=== PATIENT | female | born 1965 | race Caucasian/White ===

== ENCOUNTER 2016-08-18 21:19 | Emergency (ER) | payer OTHER | END 2016-08-18 21:40 | disposition home or self-care (01) | LOC: FER 21:19 | DX: S86.111A Strain of other muscle(s) and tendon(s) of posterior muscle group at lower leg level, right leg, initial encounter (principal); W17.2XXA Fall into hole, initial encounter; Y92.009 Unspecified place in unspecified non-institutional (private) residence as the place of occurrence of the external cause ==

== ENCOUNTER 2021-07-02 18:33 | Inpatient (IN) | payer OTHER ==
[~2021-07-02] VITALS: Ht 162.6 cm; Wt 155.2 kg
[2021-07-02 20:26] LABS: BASOPHIL 0.4 % (0-2); EOSINOPHIL 0 % (0-5); HCT 46.3 % (37.0-47.0); HGB 14.4 g/dl (12.5-16.0); LYMPHOCYTE 8.9 % (15-48); MCHC 31.1 g/dL (32.0-36.0); MCV 86.9 fL (78.0-100.0); MONOCYTE 4.6 % (0-12); MPV 10.1 fL (6.0-9.5); NEUTROPHIL 85.8 % (41-80); NRBC 0; PLT 261 K/uL (150-400); RBC 5.33 M/uL (4.20-5.40); RDW 14.6 % (11.5-14.0); WBC 10.9 K/uL (4.0-10.5)
[2021-07-02 20:42] LABS: ALBUMIN 3.8 g/dL (3.4-5.0); BILIRUBIN - TOTAL 0.4 mg/dL (0.2-1.0); BUN/CREAT RATIO (CALC) 17.1 RATIO; CREATININE 0.76 mg/dL (0.51-0.95); GLOBULIN (CALCULATION) 4.5 g/dL; POTASSIUM 3.8 mmol/L (3.5-5.1); TOTAL PROTEIN 8.3 g/dL (6.4-8.2)
[2021-07-02 20:59] LABS: INFLUENZA A NAA NEGATIVE (NEGATIVE)
[2021-07-02 21:05] LABS: CORONAVIRUS 2019 SARS-COV-2 POSITIVE (NEGATIVE)
[2021-07-03 01:59] LABS: C-REACTIVE PROTEIN < 0.20 mg/dL (<=0.90)
[2021-07-03 07:05] LABS: BUN/CREAT RATIO (CALC) 21.1 RATIO; CREATININE 0.71 mg/dL (0.51-0.95); POTASSIUM 4.1 mmol/L (3.5-5.1)
[2021-07-03] MEDS ORDERED: HCTZ25 MG PO (11:09)
[2021-07-03] MEDS ORDERED: COZAAR50 MG PO (11:10)
[2021-07-03 22:15] LABS: BILIRUBIN NEGATIVE (NEGATIVE); BLOOD NEGATIVE Ery/uL (NEGATIVE); CLARITY CLEAR (CLEAR); COLOR YELLOW (YELLOW); GLUCOSE (U) NORMAL (NORMAL); LEUKOCYTES NEGATIVE Leu/uL (NEGATIVE); NITRITE NEGATIVE (NEGATIVE); PROTEIN 1+ mg/dL (NEGATIVE); SPECIFIC GRAVITY 1.025 (1.001-1.030); UROBILINOGEN 0.2 mg/dL (0.2-1.0)
[2021-07-03 22:24] LABS: URINARY RBC RARE
[2021-07-04 06:56] LABS: BASOPHIL 0.2 % (0-2); EOSINOPHIL 0 % (0-5); HCT 43.1 % (37.0-47.0); HGB 13.4 g/dl (12.5-16.0); LYMPHOCYTE 7.6 % (15-48); MCH 26.6 pg (25.0-31.0); MCHC 31.1 g/dL (32.0-36.0); MCV 85.5 fL (78.0-100.0); MONOCYTE 8.5 % (0-12); NEUTROPHIL 83.1 % (41-80); NRBC 0; PLT 224 K/uL (150-400); RBC 5.04 M/uL (4.20-5.40); RDW 14.7 % (11.5-14.0)
[2021-07-04 07:17] LABS: BUN/CREAT RATIO (CALC) 18.9 RATIO; CREATININE 0.74 mg/dL (0.51-0.95); POTASSIUM 3.4 mmol/L (3.5-5.1)
--- NOTE | 2021-07-04 19:01 | NUR ---
NOTIFIED OF WARM RED RLE ORDERED LOVENOX
[2021-07-04 20:53] LABS: C-REACTIVE PROTEIN >18.00 mg/dL (<=0.90); LDH 311 U/L (81-234); MAGNESIUM 1.9 mg/dL (1.8-2.4); PHOSPHORUS 1.9 mg/dL (2.6-4.7)
--- NOTE | 2021-07-05 02:47 | NUR ---
The patient began to decompensate, with seizure like activity and increased respiratory rate. NURSE WOUND CARE called to bedside at 2119. NURSE WOUND CARE ordered rapid sequence intubation. RSI proceeded as follows: 2131 - Time out called for emergency intubation. 2136 - RSI drugs administered IV push: 5mg Versed, and 40mg Etomidate 2137 - Patient bagged 2138 - 0 - 200mg Succinylcholine admnistered 2139 - Intubation begun. ETT failed to enter trachea 2140 - Patient bagged 2146 - second attempt at intubation 2147 - ETT failed to enter trachea 2150 - 5mg Versed administered 2150 - Intubation begun. ETT failed to enter trachea 2152 - Patient bagged 2154 - 20mg Etomidated administered 215 - Intubation begun. ETT failed to enter trachea 2156 - 100mg Succinylcholine administered 215 - Intubation begun. ETT failed to enter trachea 2200 - Patient bagged 2204 - Intubation begun. ETT entered trachea.
--- NOTE | 2021-07-05 05:10 | NUR ---
AT SHIFT CHANGE [employer]ER REPORTED TO RN THAT PATIENT WAS HAVING DIFFICULTY BREATHING. UPON MANAGER [employer]PORATE STRATEGY SAW PATIENT TACHYCARDIC, TACHYPENIC, FEBRILE DIAPHORITIC, LABORED BREATHING, AND INCREASED CONFUSION. RAPID RESPONSE CALLED. TEACHING MANAGER, RT, RN, AND MERLY TSE AT BEDSIDE. STAT ABG ORDERED AND STAT BIPAP PLACEMENT FOR PATIENT. ABG RESULTS REPORTED TO Tyesha MORELAND. BIPAP SETTINGS INSP. PRESSURE - 16 / EXP PRESSURE 8 / FIO2 100 / RATE 20. STAT MED ORDERS FOR LASIX, TORADOL, AND MORPHINE IV PUSH ONE TIME PLACED AND GIVEN BY ROYS KOWALSKI. STAT ORDERS FOR LABS PLACED BY MERLY TSE. DEVIL TENDER GIVEN REPORT ON PATIENT.
[2021-07-05 06:01] LABS: BASOPHIL 0.6 % (0-2); EOSINOPHIL 0.5 % (0-5); HCT 43.6 % (37.0-47.0); HGB 13.5 g/dl (12.5-16.0); LYMPHOCYTE 10.9 % (15-48); MCH 26.8 pg (25.0-31.0); MCV 86.5 fL (78.0-100.0); MONOCYTE 4.3 % (0-12); MPV 9.8 fL (6.0-9.5); NEUTROPHIL 83.4 % (41-80); NRBC 0; PLT 226 K/uL (150-400); RBC 5.04 M/uL (4.20-5.40)
[2021-07-05 06:21] LABS: CREATININE 1.19 mg/dL (0.51-0.95); POTASSIUM 4.1 mmol/L (3.5-5.1)
[2021-07-05 06:40] LABS: WBC 6.5 K/uL (4.0-10.5)
[2021-07-05 17:32] LABS: BILIRUBIN NEGATIVE (NEGATIVE); BLOOD 1+ Ery/uL (NEGATIVE); CLARITY CLEAR (CLEAR); COLOR YELLOW (YELLOW); GLUCOSE (U) NORMAL (NORMAL); LEUKOCYTES NEGATIVE Leu/uL (NEGATIVE); NITRITE NEGATIVE (NEGATIVE); PROTEIN 2+ mg/dL (NEGATIVE); SPECIFIC GRAVITY 1.025 (1.001-1.030); UROBILINOGEN 0.2 mg/dL (0.2-1.0)
[2021-07-05 17:49] LABS: AMORPHOUS URATES CRYSTALS MODERATE; URINARY WBC RARE
[2021-07-05 17:50] LABS: BACTERIA 1+; GRANULAR CASTS TRACE; SQUAMOUS EPITHELIAL CELLS RARE
[2021-07-06 04:20] LABS: BASOPHIL 0 % (0-2); EOSINOPHIL 0 % (0-5); HCT 38.7 % (37.0-47.0); HGB 11.9 g/dl (12.5-16.0); LYMPHOCYTE 13.3 % (15-48); MCH 27.2 pg (25.0-31.0); MCHC 30.7 g/dL (32.0-36.0); MCV 88.4 fL (78.0-100.0); MPV 10.2 fL (6.0-9.5); NEUTROPHIL 81.2 % (41-80); NRBC 0; PLT 216 K/uL (150-400); RBC 4.38 M/uL (4.20-5.40); RDW 14.7 % (11.5-14.0)
[2021-07-06 04:33] LABS: WBC 6.5 K/uL (4.0-10.5)
[2021-07-06 04:47] LABS: BUN/CREAT RATIO (CALC) 37.8 RATIO; CREATININE 0.9 mg/dL (0.51-0.95); MAGNESIUM 2.4 mg/dL (1.8-2.4); POTASSIUM 3.8 mmol/L (3.5-5.1)
--- NOTE | 2021-07-06 17:55 | NUR ---
PT WAS PRONED AT 1630 TOLERATED INTERVENTION WELL, VITALS STABLE, VEC AT BEDSIDE FOR POSSIBLE NEED. WAS NOT STARTED ON PATIENT. MD ENGLISH AWARE AT BEDSIDE. UPDATED ON PATIENT STATUS
[2021-07-07 11:21] LABS: BASOPHIL 0.1 % (0-2); EOSINOPHIL 0 % (0-5); HCT 40.4 % (37.0-47.0); HGB 11.9 g/dl (12.5-16.0); LYMPHOCYTE 9.9 % (15-48); MCH 26.4 pg (25.0-31.0); MCHC 29.5 g/dL (32.0-36.0); MCV 89.8 fL (78.0-100.0); MONOCYTE 6.6 % (0-12); NEUTROPHIL 82.3 % (41-80); NRBC 0; PLT 235 K/uL (150-400); RDW 14.6 % (11.5-14.0); WBC 8.5 K/uL (4.0-10.5)
[2021-07-07 11:37] LABS: BUN/CREAT RATIO (CALC) 37.3 RATIO; CREATININE 0.67 mg/dL (0.51-0.95); POTASSIUM 4.1 mmol/L (3.5-5.1)
[2021-07-08 10:19] LABS: BASOPHIL 0.2 % (0-2); EOSINOPHIL 0 % (0-5); HCT 37.8 % (37.0-47.0); HGB 11.6 g/dl (12.5-16.0); LYMPHOCYTE 7.4 % (15-48); MCH 27.1 pg (25.0-31.0); MCHC 30.7 g/dL (32.0-36.0); MCV 88.3 fL (78.0-100.0); MONOCYTE 8.3 % (0-12); MPV 10.1 fL (6.0-9.5); NEUTROPHIL 82.1 % (41-80); NRBC 0; PLT 229 K/uL (150-400); RBC 4.28 M/uL (4.20-5.40); RDW 14.7 % (11.5-14.0); WBC 10.7 K/uL (4.0-10.5)
[2021-07-08 10:48] LABS: ALBUMIN 2.2 g/dL (3.4-5.0); BILIRUBIN - TOTAL 0.3 mg/dL (0.2-1.0); BUN/CREAT RATIO (CALC) 40.6 RATIO; CREATININE 0.64 mg/dL (0.51-0.95); POTASSIUM 4.4 mmol/L (3.5-5.1); TOTAL PROTEIN 6.2 g/dL (6.4-8.2)
--- NOTE | 2021-07-08 12:12 | NUR ---
nutrtion assessment completed this date; no order placed; MST 0 upon admission; intubated with TF's: RD picked up from daily screening and notice of Tube Feeding in diet orders. will monitor POC
[2021-07-08 14:50] LABS: INR 1.12 (0.9-1.2); PROTHROMBIN TIME 13.8 SECONDS (11.8-13.4); PTT 21.4 SECONDS (24.4-34.7)
[2021-07-08 17:24] LABS: CLARITY (FLUID) CLEAR; COLOR (FLUID) COLORLESS
[2021-07-08 17:26] LABS: RBC (FLUID) 4 RBC/uL; WBC (FLUID) 27 WBC/uL
--- NOTE | 2021-07-08 18:20 | NUR ---
07/08 Mr. Beltrán is intubated. Emotional support is being provided with spouse.
[2021-07-09 04:33] LABS: BASOPHIL 0.2 % (0-2); EOSINOPHIL 0 % (0-5); HCT 34.6 % (37.0-47.0); HGB 10.4 g/dl (12.5-16.0); LYMPHOCYTE 7.3 % (15-48); MCH 27.1 pg (25.0-31.0); MCHC 30.1 g/dL (32.0-36.0); MCV 90.1 fL (78.0-100.0); MONOCYTE 7.4 % (0-12); MPV 10.1 fL (6.0-9.5); NEUTROPHIL 81.2 % (41-80); NRBC 0; PLT 232 K/uL (150-400); RBC 3.84 M/uL (4.20-5.40); RDW 15.2 % (11.5-14.0); WBC 10.2 K/uL (4.0-10.5)
[2021-07-09 04:53] LABS: ALBUMIN 2.4 g/dL (3.4-5.0); BILIRUBIN - TOTAL 0.2 mg/dL (0.2-1.0); BUN/CREAT RATIO (CALC) 38.3 RATIO; C-REACTIVE PROTEIN 2.3 mg/dL (<=0.90); CREATININE 0.81 mg/dL (0.51-0.95); GLOBULIN (CALCULATION) 3.5 g/dL; MAGNESIUM 2.6 mg/dL (1.8-2.4); POTASSIUM 4.4 mmol/L (3.5-5.1); TOTAL PROTEIN 5.9 g/dL (6.4-8.2)
--- NOTE | 2021-07-09 08:56 | NUR ---
LATE ENTRY 07/08 1800 PATIENT WITH SEIZURE LIKE ACTIVITY OFF AND ON ENTIRE DAY. VALIUM GIVEN X 2 AND DIPRIVAN STARTED. SPOKE AT LENGTH WITH DR. ENGLISH ABOUT PATIENT. LUMBAR PUNCTURE DONE BY DR. GALLOWAY TO RULE OUT MENINGITIS.
--- NOTE | 2021-07-09 13:23 | NUR ---
07/09/21 Patient is on the waiting list at [facility].
[2021-07-10 06:21] LABS: BUN/CREAT RATIO (CALC) 38.3 RATIO; C-REACTIVE PROTEIN 1.9 mg/dL (<=0.90); CREATININE 1.2 mg/dL (0.51-0.95); POTASSIUM 4.3 mmol/L (3.5-5.1)
[2021-07-10 06:57] LABS: ALBUMIN 2.7 g/dL (3.4-5.0); BILIRUBIN - DIRECT 0.2 mg/dL (0.00-0.20); BILIRUBIN - TOTAL 0.4 mg/dL (0.2-1.0); GLOBULIN (CALCULATION) 3.2 g/dL; TOTAL PROTEIN 5.9 g/dL (6.4-8.2)
[2021-07-10 07:25] LABS: INR 1.24 (0.9-1.2); PROTHROMBIN TIME 14.9 SECONDS (11.8-13.4)
--- NOTE | 2021-07-10 12:23 | NUR ---
nutrition reassessment started this date: Diprovan increased to 19.3ml/hr; additional kcals from sedation now 509 calories, plans to reduce TF rate to adjust for support. in discussion with ROSY White, patient transferring to higher level of care.
--- NOTE | 2021-07-10 12:29 | NUR ---
PATIENT GOT BED AT [facility] MAIL. REPORT GIVEN TO ELMA. UNABLE TO FLY TO [facility] DUE TO WEATHER, DECISION MADE TO SEND BY GROUND. VECURONIUM STARTED TO CONTROL MYOCLONC ACTIVITY. [facility] TRANSPORTED PATIENT, LEFT AT 1155. SENT WITH VESEDGOING AT 6 MLS\HR WITH 50 MLS IN BOTTLE, 250 MLS OF VECURONIUM SENT GOING AT 1.2 MGS\KG\HR, FENTANYL GOING AT 10 MLS PER HOUR WITH 200 MLS LEFT IN BAG.
--- NOTE | 2021-07-10 12:45 | NUR ---
07/10/21 Patient was transferred to [facility].
== END 2021-07-10 12:37 | disposition other institution (70) | DRG 207 ==
LOC: FER 18:33 → FOFB 23:01 → FMS 23:01 → FICU 23:01 → FTCU 23:01 → FMS 07-03 09:27 → FTCU 07-04 10:07 → FICU 07-04 22:20
PROVIDERS: Allergy & Immunology Allergy; Nurse Practitioner; Nurse Practitioner Acute Care; Physician Assistant; ADMIT Internal Medicine
PROC: XW033E5 Introduction of Remdesivir Anti-infective into Peripheral Vein, Percutaneous Approach, New Technology Group 5 (ICD-10-PCS; 2021-07-03)
PROC: 8E0ZXY6 Isolation (ICD-10-PCS; 2021-07-03)
PROC: 5A09357 Assistance with Respiratory Ventilation, Less than 24 Consecutive Hours, Continuous Positive Airway Pressure (ICD-10-PCS; 2021-07-03)
PROC: B24BZZZ Ultrasonography of Heart with Aorta (ICD-10-PCS; 2021-07-03)
PROC: 5A1955Z Respiratory Ventilation, Greater than 96 Consecutive Hours (ICD-10-PCS; principal; 2021-07-04)
PROC: 0BH17EZ Insertion of Endotracheal Airway into Trachea, Via Natural or Artificial Opening (ICD-10-PCS; 2021-07-04)
PROC: 3E0333Z Introduction of Anti-inflammatory into Peripheral Vein, Percutaneous Approach (ICD-10-PCS; 2021-07-04)
PROC: 3E03329 Introduction of Other Anti-infective into Peripheral Vein, Percutaneous Approach (ICD-10-PCS; 2021-07-04)
PROC: 5A09357 Assistance with Respiratory Ventilation, Less than 24 Consecutive Hours, Continuous Positive Airway Pressure (ICD-10-PCS; 2021-07-04)
PROC: 5A0935A Assistance with Respiratory Ventilation, Less than 24 Consecutive Hours, High Flow/Velocity Cannula (ICD-10-PCS; 2021-07-04)
PROC: 0DH67UZ Insertion of Feeding Device into Stomach, Via Natural or Artificial Opening (ICD-10-PCS; 2021-07-04)
PROC: XW0DXM6 Introduction of Baricitinib into Mouth and Pharynx, External Approach, New Technology Group 6 (ICD-10-PCS; 2021-07-05)
PROC: 3E0G76Z Introduction of Nutritional Substance into Upper GI, Via Natural or Artificial Opening (ICD-10-PCS; 2021-07-05)
PROC: 009U3ZX Drainage of Spinal Canal, Percutaneous Approach, Diagnostic (ICD-10-PCS; 2021-07-08)
PROC: 3E033XZ Introduction of Vasopressor into Peripheral Vein, Percutaneous Approach (ICD-10-PCS; 2021-07-09)
DX: U07.1 COVID-19 (principal); J12.82 Pneumonia due to coronavirus disease 2019; J15.9 Unspecified bacterial pneumonia; G93.41 Metabolic encephalopathy; J80 Acute respiratory distress syndrome; N17.9 Acute kidney failure, unspecified; Z68.43 Body mass index [BMI] 50.0-59.9, adult; A86 Unspecified viral encephalitis; G93.1 Anoxic brain damage, not elsewhere classified; E87.0 Hyperosmolality and hypernatremia; I10 Essential (primary) hypertension; G47.33 Obstructive sleep apnea (adult) (pediatric); L65.9 Nonscarring hair loss, unspecified; R73.9 Hyperglycemia, unspecified; G25.3 Myoclonus; E66.01 Morbid (severe) obesity due to excess calories; Z79.899 Other long term (current) drug therapy; Z88.0 Allergy status to penicillin; Z90.49 Acquired absence of other specified parts of digestive tract
CPT/HCPCS: 36415; 36600; 70450; 71045; 71275; 74018; 80048; 80053; 80076; 80202; 80299; 81001; 82728; 82803; 82945; 83036; 83605; 83615; 83735; 84100; 84145; 84155; 84484; 85025; 85610; 85730; 86140; 87040; 87070; 87205; 87449; 87529; 89051; 93005; 94002; 94640; 94760; C9113; C9399; J0133; J0456; J0692; J0696; J1100; J1650; J1885; J1940; J1953; J2060; J2250; J2270; J2405; J2560; J2704; J3010; J3360; J3370; J3480; J7030; J7040; J7050; J7070; J8540; P9046; P9047; Q2009; Q9967; U0002